=== PATIENT | female | born 1950 | race Caucasian/White ===

== ENCOUNTER 2017-07-13 06:04 | Inpatient (IN) | payer BC ==
[~2017-07-13] VITALS: Ht 162.6 cm; Wt 63.3 kg
[~2017-07-13 06:04] MED LIST: DIAZ5 PO; DIOV160T3 PO; HYDR-3366 PO; HYDR25TA5 PO; IBUP200C PO; LABE100T2 PO; VITA1000 PO
[2017-07-13] MEDS ORDERED: INSULIN HUMAN REGULAR 1,000 UNITS/10 ML VIAL SQ PRN (06:45)
[2017-07-13] MEDS ORDERED: METOPROLOL TARTRATE 25 MG TAB PO PRN (06:45)
[2017-07-13] MEDS ORDERED: CHLORHEXIDINE GLUCONATE 4% SOLN 120 ML BTL TOPICAL SCH (06:45)
[2017-07-13] MEDS ORDERED: POVIDONE IODINE 5% (ANTISEPSIS KIT) 4 APPLICATIONS EACH NARE PRN (06:45)
[2017-07-13] MEDS ORDERED: LACTATED RINGER'S 1000 ML IV PRN (06:45)
[2017-07-13] MEDS ORDERED: SODIUM CHLORID 0.9% 500 ML IV PRN (06:45)
[2017-07-13] MEDS ORDERED: ceFAZolin 2 GM PREMIX 50 ML IV SCH (06:45)
[2017-07-13] MEDS ORDERED: CHLORHEXIDINE GLUCONATE 2 % 1 PACK (2 CLOTHS) TOPICAL PRN (06:45)
[2017-07-13] MEDS ORDERED: VANCOMYCIN 1000 MG/NS 250 ML (for <70 kg) IV SCH ×2 (06:45)
[2017-07-13] MEDS ORDERED: TRANEXAMIC ACID INJ 897 MG in SODIUM CHLORIDE 0.9% INJ 100 ML IV SCH (07:00)
[2017-07-13] MEDS ORDERED: EXPAREL PERI-ARTICULAR INJECTION (TOTAL VOL. 60 ML) P-ARTICULR SCH ×2 (07:00)
[2017-07-13] MEDS ORDERED: HYDR-3366 PO (08:30)
[2017-07-13] MEDS ORDERED: XARE10TA PO (08:30)
[2017-07-13] MEDS ORDERED: WALKER/ADULT/FO1 MIS (08:30)
--- NOTE | 2017-07-13 08:31 | HHI.FF ---
Face to Face Verification Diagnosis: (1) Status post total hip replacement, left Physical Therapy Hip: Hip fracture, Protocol: Left Left LE Weight Bearing: WB as tolerated Nursing Dressing Changes: Daily dressing change, Coverderm/Primapore (begin adding xeroform POD 10) I have seen patient Briana Ronquillo on 07/13/17. My clinical findings support the need for the requested home health care services because: Ltd mobility - disease progression I certify that my clinical findings support that this patient is homebound because: Post-op weakness Jean Maynard Jul 13, 2017 08:31
[2017-07-13] MEDS ORDERED: GENTAMICIN SULFATE 80 MG/2 ML VIAL ONE (09:15)
[2017-07-13] MEDS ORDERED: DEXAMETHASONE SOD PHOS 4 MG/ML VIAL ONE (09:21)
[2017-07-13] MEDS ORDERED: FAMOTIDINE 20 MG/2 ML VIAL ONE (09:21)
[2017-07-13] MEDS ORDERED: ACETAMINOPHEN 1000 MG/100 ML 100 ML IV ONE (09:21)
[2017-07-13] MEDS ORDERED: ACETAMINOPHEN/HYDROcodone 325 MG/7.5 MG TAB PO PRN (11:30)
[2017-07-13] MEDS ORDERED: DIAZEPAM 5 MG TAB PO PRN (11:30)
[2017-07-13] MEDS ORDERED: Post-op Orders (for Pharmacy) MISC XX ONE (11:30)
[2017-07-13] MEDS ORDERED: NALOXONE HCL 0.4 MG/ML AMP IV PRN (11:30)
[2017-07-13] MEDS ORDERED: SODIUM CHLORIDE 0.9% FLUSH 5 ML FLUSH IVF PRN (11:30)
[2017-07-13] MEDS ORDERED: ONDANSETRON HCL 4 MG/2 ML VIAL IVP PRN (11:30)
[2017-07-13] MEDS ORDERED: MORPHINE SULFATE 4 MG/ML INJ IV PUSH PRN (11:30)
--- NOTE | 2017-07-13 11:33 | PD.OP ---
cc: Keaton Fajardo MD Operative Report Date of Surgery: Jul 13, 2017 Preoperative Diagnosis: Severe left hip osteo arthritis Postoperative Diagnosis: Procedure: Left total hip arthroplasty by anterior approach Surgeon: Keaton Fajardo [employer] Bus Driver(s): KRISTIN Grove PA-C The surgical procedure was assisted by my physician payroll and benefits assistant. My P.A. presence was necessary throughout this case for the manipulation and positioning of the surgical extremity. My P.A. was assisting me throughout the duration of this procedure. The skill set of a physician payroll and benefits assistant was medically necessary to complete this procedure. During the surgical case the cytology technologist was working at the back table and the physician payroll and benefits assistant was directly assisting me. Operation and Findings: PLAN OF ACTIVITY Weight bear as tolerated. DRAINS: 7-mm ANNELIESE drain. IMPLANTS USED DePuy Corail size [8] collared stem with a size 48 Chilcoot Gription cup, [48/32 ] Altrx poly liner, and a [32+5] ceramic Biolox ceramic head. DETAILS OF PROCEDURE: This patient has a long history of hip pain. Patient was found to have severe osteoarthritis. The patient had radiographic evidence of joint space narrowing with [id number] arthritis and osteophytes around the acetabulum as well as the femoral head. There was also some cystic changes. The patient failed conservative treatment with pain medications, anti-inflammatories, physical therapy, assistive devices including a cane, as well as therapeutic injection of the hip. Patient's hip arthritis was limiting his ability to ambulate and perform activities of daily living. The patient wished to proceed with surgery and informed consent was obtained. Operative site was marked. I discussed both posterior approach and anterior approach with the patient and decision was made for anterior approach. Patient was brought to OR and placed on OR table. IV sedation and general anesthesia was administered by anesthesiologist. Patient positioned on a [place] table and was given IV antibiotics. Time-out procedure was performed. The hip and thigh were prepped with alcohol followed by Hibiclens. The thigh was draped in the usual sterile fashion. Clean Air Suite was used for this procedure. The procedure began with a 5-inch incision over the anterolateral thigh. Subcutaneous tissue was dissected with Bovie. The fascia over the tensa fasciae latae was incised. Care was taken to avoid injury to the lateral femoral cutaneous nerve. The tensor muscle was retracted laterally. Sartorius was retracted medially. Retractors were now placed. The reflected head of the rectus is now elevated. A capsulotomy was performed over the anterior head capsule. Sutures were placed to help retract the capsule. At this point the femoral head and neck were identified. With soft tissue protected, oscillating saw was used to make a cut through the femoral neck, the femoral head was now removed. At this point attention was turned to preparation of the acetabulum. The labrum was excised. The acetabulum was sequentially reamed up to size [48]. A Chilcoot cup was now placed. Fluoroscopy was used to aid in identification of appropriate version. Cup was fully impacted and found to have excellent fit. Hole eliminator was now placed. The liner was now impacted into the cup. At this point the hip was externally rotated. A hook was placed around the proximal femur. The capsule was released off the lateral and medial femur. The hip was now extended and adducted. Retractors were placed around the proximal femur to allow for exposure. A box osteotome was used to remove the lateral cortex of the femoral neck. A broach was used to help lateralize the prosthesis. Canal finder was used to create a path down the canal. Next, the canal was sequentially broached up to size [8]. This was found to be an excellent fit. Calcar planer was placed. A standard head was placed, and the hip was reduced. The hip was found to have excellent stability with good range of motion. The leg lengths were measured under fluoroscopy and found to be equal compared to preoperatively. Trial broach was removed. The Corail stem was opened. Stem was fully impacted into the proximal femur in appropriate version. The femoral head was placed. The hip was again reduced. Fluoroscopy confirmed excellent alignment of prosthesis. The wound was thoroughly irrigated and capsule was closed with #1 Vicryl. The fascia over the tensor fasciae muscle was closed with #1 Vicryl, subcutaneous tissue was closed with 3-0 Vicryl and the skin was closed with alexandrea and Dermabond skin closure. The capsule layers, muscle, and subcutaneous tissue were injected with a mixture of saline and bupivicaine. Dressings were applied. The patient was transferred to Recovery Room in stable condition. Keaton Fajardo MD Jul 13, 2017 11:33
[2017-07-13] MEDS ORDERED: DO NOT ADM ANY ANTICOAGULANT DRUGS PRN (11:54)
[2017-07-13] MEDS: LACTATED RINGER'S 1000 ML INJ 1,000 ML IV SCH ×2 (12:00→23:59)
[2017-07-13] MEDS ORDERED: *morphine SULFATE 8 MG/ML PERIprocedure ONLY ONE ×4 (12:04→15:16)
[2017-07-13] MEDS ORDERED: NEOSTIGMINE 3 MG/3 ML SYR IV ONE (12:56)
[2017-07-13] MEDS ORDERED: ROCURONIUM INJ 50 MG/5 ML SYRINGE IV PUSH ONE (12:56)
[2017-07-13] MEDS ORDERED: MIDAZOLAM HCL 2 MG/2 ML VIAL IV ONE (12:56)
[2017-07-13] MEDS ORDERED: LIDOCAINE HCL 1% PF 5 ML AMPULE OTHER ONE (12:56)
[2017-07-13] MEDS ORDERED: PROPOFOL 200 MG/20 ML AMP IV ONE (12:56)
[2017-07-13] MEDS ORDERED: ePHEDrine/NS 25 MG/5 ML SYR IV ONE (12:56)
[2017-07-13] MEDS ORDERED: PHENYLEPH/NS 1000 MCG/10 ML SYR IV ONE (12:56)
[2017-07-13] MEDS ORDERED: GLYCOPYRROLATE 0.2 MG/ML VIAL IV ONE (12:56)
[2017-07-13] MEDS: KETOROLAC TROMETHAMINE 30 MG/ML (IVP) VIAL IV PUSH SCH (13:00)
[2017-07-13] MEDS ORDERED: TRANEXAMIC ACID INJ 1,000 MG in SODIUM CHLORIDE 0.9% INJ 100 ML IV ONE (13:00)
--- NOTE | 2017-07-13 13:08 | RADRPT ---
EXAM DATE/TIME: 07/13/2017 12:07 [facility] COMPARISON: No previous studies available for comparison. INDICATIONS : Post op left total hip replacement. MEDICAL HISTORY : Hypertension. Osteoarthritis. SURGICAL HISTORY : None. ENCOUNTER: Initial ACUITY: 1 day PAIN SCORE: 6/10 LOCATION: Left hip FINDINGS: A lateral view of the left hip with AP pelvis was obtained. Severe arthritic changes right hip. Scler osis and slight deformity of the right femoral head. Left hip prosthesis. No hardware loosening or fr acture. Postsurgical changes. Drain in place. CONCLUSION: 1. Left hip arthroplasty. 2. Severe arthritic changes of the right hip. Yovani Mijares MD on July 13, 2017 at 13:05 Board Certified Radiologist. This report was verified electronically.
--- NOTE | 2017-07-13 15:27 | RADRPT ---
EXAM DATE/TIME: 07/13/2017 11:02 [facility] COMPARISON: FLUOROSCOPY PORTABLE UP TO 1HR, July 13, 2017, 0:00. INDICATIONS : Left total hip arthroplasty. MEDICAL HISTORY : Hypertension. Osteoarthritis. SURGICAL HISTORY : None. ENCOUNTER: Initial ACUITY: 1 day PAIN SCORE: Non-responsive. LOCATION: Left hip FINDINGS: The patient is post left hip arthroplasty. Orthopedic hardware is in excellent position. Alignment is good. There is no evidence of complication. CONCLUSION: 1. Orthopedic hardware in excellent position. Willie Dey MD on July 13, 2017 at 15:24 Board Certified Radiologist. This report was verified electronically.
[2017-07-13] MEDS: ceFAZolin 2 GM PREMIX 50 ML IV SCH ×2 (16:00→21:50)
[2017-07-13 17:40] VITALS: BP 131/71; PULSE 97; RESP 18; TEMP 97.9; O2SAT 99
[2017-07-13 19:07] VITALS: BP 133/73; PULSE 93; RESP 18; TEMP 98.7; O2SAT 98
[2017-07-13] MEDS: LABETALOL HCL 100 MG TAB PO SCH (19:50)
[2017-07-13] MEDS: ACETAMINOPHEN/HYDROcodone 325 MG/10 MG TAB PO PRN (19:50)
[2017-07-13] MEDS: VANCOMYCIN INJ 1,000 MG in SODIUM CHLOR 0.9% 250 ML INJ 250 ML IV SCH (19:52)
[2017-07-13] MEDS: SODIUM CHLORIDE 0.9% FLUSH 5 ML FLUSH IVF SCH (19:57)
[2017-07-13 23:47] VITALS: BP 107/55; PULSE 89; RESP 17; TEMP 97.9; O2SAT 100
[2017-07-14] MEDS: KETOROLAC TROMETHAMINE 30 MG/ML (IVP) VIAL IV PUSH SCH ×2 (00:44→13:57)
[2017-07-14] MEDS: ACETAMINOPHEN/HYDROcodone 325 MG/10 MG TAB PO PRN ×4 (01:11→13:57)
[2017-07-14] MEDS: ceFAZolin 2 GM PREMIX 50 ML IV SCH (04:39)
[2017-07-14 04:41] VITALS: BP 121/62; PULSE 86; RESP 18; TEMP 98.9; O2SAT 99
--- NOTE | 2017-07-14 06:41 | PD.ORT.PN ---
Subjective Subjective Remarks Doing very well after left hip replacement POD 1 Objective Vitals Vital Signs Date Time Temp Pulse Resp B/P (MAP) Pulse Ox O2 Delivery O2 Flow Rate FiO2 07/14/17 04:41 98.9 86 18 121/62 (81) 99 07/13/17 23:47 97.9 89 17 107/55 (72) 100 07/13/17 19:07 98.7 93 18 133/73 (93) 98 07/13/17 17:40 97.9 97 18 131/71 (91) 99 07/13/17 17:15 98.2 95 15 134/62 (86) 100 Room Air 07/13/17 16:30 81 15 121/60 (80) 100 Nasal Cannula 2 07/13/17 16:00 84 15 127/62 (83) 100 Nasal Cannula 2 07/13/17 15:30 85 16 127/60 (82) 99 Nasal Cannula 2 07/13/17 15:00 92 17 126/58 (80) 99 Nasal Cannula 2 07/13/17 14:30 95 16 142/76 (98) 100 Nasal Cannula 2 07/13/17 14:00 87 17 155/79 (104) 100 Nasal Cannula 2 07/13/17 14:00 15 07/13/17 13:30 90 15 165/79 (107) 100 Nasal Cannula 2 07/13/17 13:00 90 15 174/81 (112) 100 Nasal Cannula 2 07/13/17 12:45 79 16 160/78 (105) 100 Nasal Cannula 2 07/13/17 12:30 81 15 163/78 (106) 100 Nasal Cannula 2 07/13/17 12:15 83 15 162/78 (106) 100 Nasal Cannula 2 07/13/17 12:00 80 16 162/77 (105) 100 Nasal Cannula 2 07/13/17 11:56 97.8 81 14 165/83 (110) 100 Nasal Cannula 2 07/13/17 07:23 98.2 87 20 170/82 (111) 98 I/O 07/13/17 07/13/17 07/13/17 07/14/17 07/14/17 07/14/17 07:00 15:00 23:00 07:00 15:00 23:00 Intake Total 1360 ml 2032 ml 1282 ml Output Total 300 ml 1190 ml 65 ml Balance 1060 ml 842 ml 1217 ml Intake Oral 840 ml 480 ml IV Total 360 ml 1192 ml 802 ml Other 1000 ml Output Urine Total 1000 ml Drainage Total 190 ml 65 ml Estimated Blood Loss 300 ml # Voids 1 1 2 # Bowel Movements 0 0 Imaging Last 24 hours Impressions Hip and Pelvis X-Ray 07/13/17 1129 Signed Impressions: Service Date/Time: Thursday, July 13, 2017 12:07 - CONCLUSION: 1. Left hip arthroplasty. 2. Severe arthritic changes of the right hip. Yovani Mijares MD Objective Remarks Left lower extremity: Clean dry dressings intact with drain in place. Mild swelling. Distally intact sensation with good capillary refills and strong dorsiflexion plantar flexion of foot. Mild tenderness with internal/external rotation of hip Assessment & Plan Assessment and Plan Left total hip arthroplasty anterior approach POD 1 Weightbearing as tolerated twice a day with physical therapy Discontinue drain and first dressing change after physical therapy. Dry dressing with Primapore over incision and Xeroform over drain site, no Steri- Strips Incentive spirometry Dose of Lovenox while in hospital then convert to Xarelto after discharge MONROE nieves's Case management for home health dressing changes and physical therapy with Drs. [email or web address] Discharge to home today if doing well with physical therapy otherwise discharged tomorrow Follow-up with Dr. Fajardo or JOSE in 2 weeks Edgardo Baez Jr. Jul 14, 2017 06:41
[2017-07-14 06:57] LABS: HEMATOCRIT 23.4 % (35.0-46.0); REVIEW FLAG FINAL
[2017-07-14 08:00] VITALS: BP 149/59; PULSE 87; RESP 18; TEMP 98.3; O2SAT 98
[2017-07-14] MEDS ORDERED: CHOLECALCIFEROL (VIT D3) 1000 UNIT TAB PO SCH (09:00)
[2017-07-14] MEDS ORDERED: NON-FORMULARY DRUG (Valsartan-Hydrochlorothiazide (Diovan Hct) 1 TAB) PO SCH (09:00)
[2017-07-14] MEDS ORDERED: HYDROCHLOROTHIAZIDE 25 MG TAB PO SCH (09:00)
[2017-07-14] MEDS ORDERED: VALSARTAN 160 MG TAB PO SCH (09:00)
[2017-07-14] MEDS ORDERED: HYDROCHLOROTHIAZIDE 12.5 MG CAP PO SCH (09:00)
[2017-07-14] MEDS: VANCOMYCIN INJ 1,000 MG in SODIUM CHLOR 0.9% 250 ML INJ 250 ML IV SCH (09:25)
[2017-07-14] MEDS: SODIUM CHLORIDE 0.9% FLUSH 5 ML FLUSH IVF SCH (09:26)
[2017-07-14 09:29] VITALS: O2SAT 97
[2017-07-14] MEDS: LABETALOL HCL 100 MG TAB PO SCH (10:06)
[2017-07-14] MEDS ORDERED: ENOXAPARIN SODIUM 40 MG/0.4 ML SYRINGE SQ SCH (11:00)
[2017-07-14 11:50] VITALS: BP 139/65; PULSE 83; RESP 18; TEMP 98.1; O2SAT 96
[2017-07-14] MEDS: LACTATED RINGER'S 1000 ML INJ 1,000 ML IV SCH (12:29)
[2017-07-14] MEDS ORDERED: DOCUSATE SODIUM 100 MG CAP PO SCH (21:00)
== END 2017-07-14 16:26 | disposition home health service (06) | DRG 470 ==
LOC: HSDI 06:04 → N06A 17:47
PROVIDERS: ADMIT Orthopaedic Surgery Orthopaedic Trauma; ATTEND Orthopaedic Surgery Orthopaedic Trauma
PROC: 0SRB04A Replacement of Left Hip Joint with Ceramic on Polyethylene Synthetic Substitute, Uncemented, Open Approach (ICD-10-PCS; principal; 2017-07-13 09:44)
DX: M16.12 Unilateral primary osteoarthritis, left hip (principal)
CPT/HCPCS: 73501; 73502; 76000; 85014; 85018; 86850; 86900; 86901; C1776; C9290; J0131; J0690; J1100; J1580; J1650; J1885; J2250; J2270; J2370; J2710; J3010; J3370; J7050; J7120